=== PATIENT | male | born 1955 | race Caucasian/White ===

== ENCOUNTER 2021-01-20 11:06 | Inpatient (IN) | payer BC, OTHER ==
[~2021-01-20] VITALS: Ht 185.4 cm; Wt 115.8 kg
[2021-01-20] MEDS ORDERED: SODIUM CHLORIDE FLUSH 10ML SYR IVF ONE (11:30)
[2021-01-20] MEDS ORDERED: SODIUM CHLORIDE 0.9% 1,000ML IVBOLUS ONE (11:30)
--- NOTE | 2021-01-20 12:13 | NUR ---
RT foot swollen, reddened, two blackened area to anterior foot, blackened area to bottom of great toe, open ulcers to anterior foot proximal to great toe and ball of foot at great toe, peeling skin wrapping around distal foot, very strong odor noted. Pt states sx started w/ a blister one week ago. Had an mobile application architect; hasn't seen this doctor in a while. Hx: DM. Takes Metformin and "a shot". Reports being compliant w/ medications; "I've been controlling it very well."
[2021-01-20] MEDS ORDERED: Metformin PO (12:24)
[2021-01-20] MEDS ORDERED: insulin pen SQ (12:24)
[2021-01-20 12:26] LABS: MEAN CORPUSCULAR HEMOGLOBIN 29.4 pg (27.5-34.5); MEAN CORPUSCULAR HGB CONC 33.1 g/dL (33.2-36.2); MEAN PLATELET VOLUME 7.1 fL (7.4-10.4); PLATELET COUNT 487 x10^3/uL (130-400); RED BLOOD COUNT 3.39 x10^6/uL (4.38-5.82); RED CELL DISTRIBUTION WIDTH 14.3 % (9.4-14.8)
[2021-01-20 12:30] LABS: HCT (SEDRATE) 30.4 % (39.2-51.8)
[2021-01-20 12:31] LABS: ALANINE AMINOTRANSFERASE 61 U/L (12-78); ALBUMIN 1.8 g/dL (3.4-5.0); ANION GAP 10 mmol/L (5-15); CALCIUM 12.1 mg/dL (8.5-10.1); CHLORIDE 101 mmol/L (98-107); CREATININE 1.77 mg/dL (0.7-1.3)
[2021-01-20 12:41] LABS: ALKALINE PHOSPHATASE 174 U/L (45-117); BILIRUBIN,TOTAL 0.3 mg/dL (0.2-1.0); TOTAL PROTEIN 6.8 g/dL (6.4-8.2)
[2021-01-20 12:42] LABS: C-REACTIVE PROTEIN, QUANT > 19.00 mg/dL (0.02-0.49)
--- NOTE | 2021-01-20 12:48 | NUR ---
Gauze dressing applied to both RT foot ulcers. Blankets provided, side rail up x1, call light w/in reach. Pt requesting pain medication; ERP will be notified.
[2021-01-20 13:06] LABS: BAND#(MANUAL) 2.13 x10^3/uL; BANDS%(MANUAL) 11 % (0-7); LYMPH#(MANUAL) 0.78 x10^3/uL (1-3.4); LYMPHS% (MANUAL) 4 % (22-44); MONOS#(MANUAL) 0.78 x10^3/uL (0.3-2.7); MONOS% (MANUAL) 4 % (2-9); SEG#(MANUAL) 15.71 x10^3/uL (1.8-6.8); SEGS% (MANUAL) 81 % (42-75)
[2021-01-20 13:07] LABS: <PLATELET ESTIMATE> INCREASED; <PLT MORPHOLOGY> NORMAL PLT MORPH; <RBC MORPHOLOGY> NORMAL
[2021-01-20 13:09] LABS: PMNS WITH VACUOLES 1+; TOXIC GRAN 1+
[2021-01-20] MEDS ORDERED: PIPERACILLIN/TAZO 4.5 GM in SODIUM CHLORIDE 0.9% 100 ML IVPB ONE (13:30)
[2021-01-20] MEDS ORDERED: VANCOMYCIN PER PHARMACY MC ONE (13:30)
[2021-01-20] MEDS ORDERED: VANCOMYCIN 2,500 MG in SODIUM CHLORIDE 0.9% 500 ML IV ONE (13:30)
[2021-01-20] MEDS ORDERED: MORPHINE SULFATE 4 MG/ML, 1ML ONE (14:24)
[2021-01-20] MEDS ORDERED: ONDANSETRON 2MG/ML, 2ML ONE (14:24)
[2021-01-20] MEDS ORDERED: MORPHINE SULFATE 4 MG/ML, 1ML IVPush PRN (14:30)
[2021-01-20] MEDS ORDERED: ONDANSETRON 2MG/ML, 2ML IVPush ONE (14:30)
[2021-01-20] MEDS ORDERED: SODIUM CHLORIDE FLUSH 10ML SYR IVF PRN (14:30)
--- NOTE | 2021-01-20 14:30 | NUR ---
Break RN note: Pt medicated for 8/10 pain in R foot. POC discussed, Pt assisted to reposition himself in bed, provided urinal per request.
--- NOTE | 2021-01-20 14:57 | NUR ---
Break RN note: Pt resting in bed with eyes closed, resp even and unlabored, NADN. Pt awakens easily to this RN entering room. Pt reports pain improved after medications given, denies other needs.
[2021-01-20] MEDS ORDERED: VANCOMYCIN PER PHARMACY MC PRN (16:00)
--- NOTE | 2021-01-20 16:11 | NUR ---
Report called to Dina ORTIZ on medical. Floor ready for pt transport.
--- NOTE | 2021-01-20 16:13 | NUR ---
Level of care changed to medical with telemetry.
[2021-01-20] MEDS ORDERED: morphine SULFATE 10 MG/ML, 1ML IVPush PRN (16:30)
[2021-01-20] MEDS ORDERED: LACTATED RINGERS 1,000 ML IV SCH (16:30)
[2021-01-20] MEDS ORDERED: ONDANSETRON ODT 4 MG PO PRN (16:30)
[2021-01-20] MEDS ORDERED: ONDANSETRON 2MG/ML, 2ML IVPush PRN ×2 (16:30→18:00)
--- NOTE | 2021-01-20 16:52 | NUR ---
REPORT TO RADHA ORTIZ IN OR, PT TRANSPORTED TO OR VIA OR TECH.
[2021-01-20] MEDS ORDERED: INSULIN LISPRO 100 UNITS/ML, PEN SQ-INSULIN SCH ×2 (17:00→21:30)
[2021-01-20 17:07] LABS: INTERNATIONAL NORMALIZED RATIO 1.19 (0.93-1.1); PROTHROMBIN TIME 12.6 Seconds (9.6-11.5)
[2021-01-20] MEDS ORDERED: OXYcodone 5 MG/5 ML ORAL.SOL UDC PO PRN (18:00)
[2021-01-20] MEDS ORDERED: HYDROmorphone 1 MG/ML, 1ML INJ IVPush PRN (18:00)
[2021-01-20] MEDS ORDERED: hydrALAzine 20 MG/ML, 1ML IV PRN (18:00)
[2021-01-20] MEDS ORDERED: PROMETHAZINE 25 MG/ML, 1ML IVPush PRN (18:00)
[2021-01-20] MEDS ORDERED: METHOCARBAMOL 1,000 MG in DEXTROSE 5% 100 ML IV PRN (18:00)
[2021-01-20] MEDS ORDERED: LABETALOL 5MG/ML, 20ML IV PRN (18:00)
[2021-01-20] MEDS ORDERED: LORazepam 2 MG/ML, 1ML IVPush PRN (18:00)
[2021-01-20] MEDS ORDERED: ACETAMINOPHEN 325 MG TABLET PO PRN (18:00)
[2021-01-20] MEDS ORDERED: EPHEDRINE 50 MG/ML, 1ML IVPush PRN (18:00)
[2021-01-20] MEDS ORDERED: FENTANYL PF 100 MCG/2ML ONE (19:01)
[2021-01-20] MEDS ORDERED: OXYcodone 5 MG/5 ML ORAL.SOL UDC ONE (19:02)
[2021-01-20] MEDS ORDERED: ACETAMINOPHEN 650 MG/20.3 ML UDC ONE (19:03)
[2021-01-20] MEDS: FENTANYL PF 100 MCG/2ML IV PRN ×2 (19:08→19:40)
[2021-01-20 21:00] VITALS: BP 155/56
[2021-01-20] MEDS ORDERED: PHARMACOKINETIC MONITORING MC PRN (21:00)
[2021-01-20] MEDS: PIPERACILLIN/TAZO 3.375 GM in DEXTROSE 5% 50 ML IVPB SCH (21:58)
[2021-01-20 22:05] VITALS: BP 114/61
[2021-01-20 22:43] VITALS: BP 115/63
[2021-01-20 22:44] VITALS: BP 155/56
[2021-01-20 23:08] VITALS: BP 127/65
[2021-01-21 00:31] VITALS: BP 135/71
[2021-01-21] MEDS ORDERED: DIPHENHYDRAMINE 25 MG CAPSULE PO PRN (01:00)
[2021-01-21] MEDS ORDERED: ACETAMINOPHEN 325 MG TABLET PO PRN (01:00)
[2021-01-21] MEDS ORDERED: HYDROcodone/APAP 7.5-325MG/15ML UDC PO PRN (01:00)
[2021-01-21] MEDS ORDERED: ONDANSETRON 2MG/ML, 2ML IV PRN (01:00)
[2021-01-21] MEDS: KETOROLAC 30 MG/1 ML IV SCH ×3 (01:06→17:21)
[2021-01-21] MEDS: LACTATED RINGERS 1,000 ML IV SCH ×3 (03:36→23:46)
[2021-01-21 04:55] LABS: MEAN CORPUSCULAR HEMOGLOBIN 30.1 pg (27.5-34.5); MEAN CORPUSCULAR HGB CONC 33.2 g/dL (33.2-36.2); PLATELET COUNT 434 x10^3/uL (130-400); RED BLOOD COUNT 2.97 x10^6/uL (4.38-5.82); RED CELL DISTRIBUTION WIDTH 14.5 % (9.4-14.8)
[2021-01-21] MEDS: PIPERACILLIN/TAZO 3.375 GM in DEXTROSE 5% 50 ML IVPB SCH ×4 (05:06→20:50)
[2021-01-21 05:10] LABS: ALANINE AMINOTRANSFERASE 41 U/L (12-78); ALBUMIN 1.5 g/dL (3.4-5.0); ANION GAP 5 mmol/L (5-15); CALCIUM 10.5 mg/dL (8.5-10.1); CHLORIDE 106 mmol/L (98-107); CREATININE 1.39 mg/dL (0.7-1.3)
[2021-01-21 05:12] LABS: ALKALINE PHOSPHATASE 139 U/L (45-117); BILIRUBIN,TOTAL 0.3 mg/dL (0.2-1.0); TOTAL PROTEIN 6.1 g/dL (6.4-8.2)
[2021-01-21 05:59] LABS: BAND#(MANUAL) 0.53 x10^3/uL; BANDS%(MANUAL) 3 % (0-7); LYMPH#(MANUAL) 1.41 x10^3/uL (1-3.4); LYMPHS% (MANUAL) 8 % (22-44); MONOS#(MANUAL) 1.23 x10^3/uL (0.3-2.7); MONOS% (MANUAL) 7 % (2-9); SEG#(MANUAL) 14.43 x10^3/uL (1.8-6.8); SEGS% (MANUAL) 82 % (42-75)
[2021-01-21 06:00] LABS: <PLATELET ESTIMATE> INCREASED; <PLT MORPHOLOGY> NORMAL PLT MORPH; <RBC MORPHOLOGY> NORMAL; PMNS WITH VACUOLES 1+
[2021-01-21 07:12] VITALS: BP 153/75
[2021-01-21] MEDS: SODIUM CHLORIDE FLUSH 10ML SYR IVF SCH ×2 (08:05→20:00)
[2021-01-21] MEDS: DOCUSATE 100 MG CAPSULE PO SCH ×2 (08:05→19:58)
[2021-01-21] MEDS ORDERED: VANCOMYCIN 2,000 MG in SODIUM CHLORIDE 0.9% 500 ML IV SCH ×2 (09:00→14:00)
[2021-01-21] MEDS: INSULIN LISPRO 100 UNITS/ML, PEN SQ-INSULIN SCH ×4 (09:15→20:00)
[2021-01-21] MEDS: ENOXAPARIN 40 MG/0.4 ML SQ SCH (09:15)
[2021-01-21] MEDS: OXYcodone/APAP 5/325MG TABLET PO PRN ×3 (13:16→20:50)
[2021-01-21] MEDS ORDERED: INSULIN GLARGINE 100 UNITS/ML, PEN SQ-INSULIN ONE (14:16)
[2021-01-21 15:23] VITALS: BP 156/83
[2021-01-21 19:12] VITALS: BP 168/84
[2021-01-21] MEDS: INSULIN GLARGINE 100 UNITS/ML, PEN SQ-INSULIN SCH (19:59)
[2021-01-21] MEDS: DAPTOMYCIN 600 MG in SODIUM CHLORIDE 0.9% 100 ML IV SCH (19:59)
[2021-01-21] MEDS ORDERED: OXYMETAZOLINE NASAL SPRAY 0.05%,30ML ONE (23:05)
[2021-01-21 23:46] VITALS: BP 151/72
[2021-01-22 00:19] VITALS: BP 151/72
[2021-01-22] MEDS: OXYcodone/APAP 5/325MG TABLET PO PRN ×3 (02:45→18:59)
[2021-01-22 04:48] LABS: MEAN CORPUSCULAR HEMOGLOBIN 30.2 pg (27.5-34.5); MEAN CORPUSCULAR HGB CONC 33.5 g/dL (33.2-36.2); MEAN PLATELET VOLUME 6.8 fL (7.4-10.4); PLATELET COUNT 425 x10^3/uL (130-400); RED CELL DISTRIBUTION WIDTH 14.6 % (9.4-14.8)
[2021-01-22] MEDS: PIPERACILLIN/TAZO 3.375 GM in DEXTROSE 5% 50 ML IVPB SCH ×3 (05:00→20:55)
[2021-01-22 05:02] LABS: CHLORIDE 106 mmol/L (98-107)
[2021-01-22] MEDS: LACTATED RINGERS 1,000 ML IV SCH ×2 (05:02→16:19)
[2021-01-22 05:10] LABS: ALANINE AMINOTRANSFERASE 38 U/L (12-78); ALBUMIN 1.4 g/dL (3.4-5.0); ALKALINE PHOSPHATASE 144 U/L (45-117); ANION GAP 6 mmol/L (5-15); BILIRUBIN,TOTAL 0.4 mg/dL (0.2-1.0); CALCIUM 9.7 mg/dL (8.5-10.1); CREATININE 1.08 mg/dL (0.7-1.3); TOTAL PROTEIN 6.2 g/dL (6.4-8.2)
[2021-01-22 06:07] LABS: BANDS%(MANUAL) 5 % (0-7); LYMPHS% (MANUAL) 10 % (22-44); MONOS#(MANUAL) 1.08 x10^3/uL (0.3-2.7); MONOS% (MANUAL) 6 % (2-9); SEG#(MANUAL) 14.22 x10^3/uL (1.8-6.8); SEGS% (MANUAL) 79 % (42-75)
[2021-01-22 06:08] LABS: <PLATELET ESTIMATE> INCREASED; <PLT MORPHOLOGY> NORMAL PLT MORPH; <RBC MORPHOLOGY> NORMAL; TOXIC GRAN 1+
[2021-01-22] MEDS: INSULIN LISPRO 100 UNITS/ML, PEN SQ-INSULIN SCH ×4 (07:00→20:32)
[2021-01-22 08:18] VITALS: BP 159/74
[2021-01-22] MEDS: ENOXAPARIN 40 MG/0.4 ML SQ SCH (08:29)
[2021-01-22] MEDS: DOCUSATE 100 MG CAPSULE PO SCH ×2 (08:45→20:31)
[2021-01-22] MEDS: SODIUM CHLORIDE FLUSH 10ML SYR IVF SCH ×2 (08:45→20:06)
[2021-01-22] MEDS: INSULIN GLARGINE 100 UNITS/ML, PEN SQ-INSULIN SCH (08:46)
[2021-01-22] MEDS ORDERED: POLYETHYLENE GLYCOL 17 GM PACKET PO PRN (11:00)
[2021-01-22] MEDS ORDERED: FENTANYL PF 100 MCG/2ML IV PRN (12:00)
[2021-01-22] MEDS ORDERED: MIDAZOLAM 1 MG/ML, 2ML IV PRN (12:00)
[2021-01-22] MEDS ORDERED: HYDROmorphone 1 MG/ML, 1ML INJ IVPush PRN (12:00)
[2021-01-22] MEDS ORDERED: PROMETHAZINE 25 MG/ML, 1ML IVPush PRN (12:00)
[2021-01-22] MEDS ORDERED: ACETAMINOPHEN 325 MG TABLET PO PRN (12:00)
[2021-01-22] MEDS ORDERED: OXYcodone 5 MG/5 ML ORAL.SOL UDC PO PRN (12:00)
[2021-01-22] MEDS ORDERED: ALBUTEROL SULFATE 2.5 MG/3 ML NPPB PRN (12:00)
[2021-01-22] MEDS ORDERED: MEPERIDINE/PF 25MG/0.5ML IVPush PRN (12:00)
[2021-01-22] MEDS ORDERED: LABETALOL 5MG/ML, 20ML IV PRN (12:00)
[2021-01-22] MEDS ORDERED: MIDAZOLAM 1 MG/ML, 2ML ONE (12:02)
[2021-01-22] MEDS ORDERED: FENTANYL PF 100 MCG/2ML ONE (12:02)
[2021-01-22] MEDS ORDERED: PROPOFOL 10 MG/ML, 20ML ONE (12:26)
[2021-01-22] MEDS ORDERED: ONDANSETRON 2MG/ML, 2ML ONE (12:26)
[2021-01-22] MEDS ORDERED: OXYcodone 5 MG/5 ML ORAL.SOL UDC ONE (13:48)
[2021-01-22 16:14] VITALS: BP 146/58
[2021-01-22] MEDS: SENNA/DOCUSATE TABLET PO PRN (16:18)
[2021-01-22] MEDS: DAPTOMYCIN 600 MG in SODIUM CHLORIDE 0.9% 100 ML IV SCH (18:59)
[2021-01-22 19:02] VITALS: BP 161/93
[2021-01-22] MEDS: HYDROmorphone 2 MG/ML, 1ML IVPush PRN (20:31)
[2021-01-23 01:30] VITALS: BP 153/87
[2021-01-23] MEDS: LACTATED RINGERS 1,000 ML IV SCH ×3 (05:00→23:48)
[2021-01-23] MEDS: PIPERACILLIN/TAZO 3.375 GM in DEXTROSE 5% 50 ML IVPB SCH ×3 (05:05→20:44)
[2021-01-23] MEDS: OXYcodone/APAP 5/325MG TABLET PO PRN ×4 (05:19→23:53)
[2021-01-23 06:00] LABS: BASOPHILS % (AUTO) 0 % (0-1); EOSINOPHILS % (AUTO) 2 % (1-7); LYMPHOCYTES % (AUTO) 13 % (22-44); MEAN CORPUSCULAR HEMOGLOBIN 29.6 pg (27.5-34.5); MEAN CORPUSCULAR HGB CONC 32.6 g/dL (33.2-36.2); MEAN PLATELET VOLUME 6.7 fL (7.4-10.4); MONOCYTES % (AUTO) 7 % (2-9); NEUTROPHILS % (AUTO) 78 % (42-75); PLATELET COUNT 427 x10^3/uL (130-400); RED BLOOD COUNT 2.91 x10^6/uL (4.38-5.82); RED CELL DISTRIBUTION WIDTH 14.7 % (9.4-14.8)
[2021-01-23 06:09] LABS: CHLORIDE 107 mmol/L (98-107)
[2021-01-23 06:15] LABS: ALANINE AMINOTRANSFERASE 42 U/L (12-78); ALBUMIN 1.4 g/dL (3.4-5.0); ALKALINE PHOSPHATASE 146 U/L (45-117); ANION GAP 6 mmol/L (5-15); BILIRUBIN,TOTAL 0.4 mg/dL (0.2-1.0); CALCIUM 9.2 mg/dL (8.5-10.1); CREATININE 0.95 mg/dL (0.7-1.3); TOTAL PROTEIN 6.6 g/dL (6.4-8.2)
[2021-01-23] MEDS: INSULIN LISPRO 100 UNITS/ML, PEN SQ-INSULIN SCH ×4 (07:00→20:45)
[2021-01-23 07:48] VITALS: BP 151/83
[2021-01-23 08:13] VITALS: BP 159/80
[2021-01-23] MEDS: ENOXAPARIN 40 MG/0.4 ML SQ SCH (09:57)
[2021-01-23] MEDS: DOCUSATE 100 MG CAPSULE PO SCH ×2 (09:58→20:44)
[2021-01-23] MEDS: SODIUM CHLORIDE FLUSH 10ML SYR IVF SCH ×2 (09:58→20:44)
[2021-01-23 13:10] VITALS: BP 173/81
[2021-01-23] MEDS: INSULIN GLARGINE 100 UNITS/ML, PEN SQ-INSULIN SCH ×2 (14:35→20:45)
[2021-01-23] MEDS: DAPTOMYCIN 600 MG in SODIUM CHLORIDE 0.9% 100 ML IV SCH (19:41)
[2021-01-23 20:30] VITALS: BP 159/82
[2021-01-23] MEDS: HYDROmorphone 2 MG/ML, 1ML IVPush PRN (20:56)
[2021-01-24 02:29] VITALS: BP 162/86
[2021-01-24] MEDS: SENNA/DOCUSATE TABLET PO PRN (02:35)
[2021-01-24] MEDS: HYDROmorphone 2 MG/ML, 1ML IVPush PRN ×2 (02:36→19:55)
[2021-01-24] MEDS: PIPERACILLIN/TAZO 3.375 GM in DEXTROSE 5% 50 ML IVPB SCH ×3 (05:18→21:00)
[2021-01-24] MEDS: OXYcodone/APAP 5/325MG TABLET PO PRN ×3 (05:23→22:04)
[2021-01-24] MEDS: INSULIN LISPRO 100 UNITS/ML, PEN SQ-INSULIN SCH ×4 (07:00→19:48)
[2021-01-24 07:09] LABS: HCT (SEDRATE) 26.3 % (39.2-51.8)
[2021-01-24 07:13] LABS: BASOPHILS % (AUTO) 0 % (0-1); EOSINOPHILS % (AUTO) 2 % (1-7); LYMPHOCYTES % (AUTO) 13 % (22-44); MEAN CORPUSCULAR HEMOGLOBIN 29.4 pg (27.5-34.5); MEAN CORPUSCULAR HGB CONC 32.6 g/dL (33.2-36.2); MEAN PLATELET VOLUME 6.7 fL (7.4-10.4); MONOCYTES % (AUTO) 6 % (2-9); NEUTROPHILS % (AUTO) 79 % (42-75); PLATELET COUNT 450 x10^3/uL (130-400); RED BLOOD COUNT 2.89 x10^6/uL (4.38-5.82); RED CELL DISTRIBUTION WIDTH 14.5 % (9.4-14.8)
[2021-01-24 07:22] VITALS: BP 153/84
[2021-01-24 07:30] LABS: ALANINE AMINOTRANSFERASE 48 U/L (12-78); ALBUMIN 1.4 g/dL (3.4-5.0); ANION GAP 7 mmol/L (5-15); CALCIUM 8.9 mg/dL (8.5-10.1); CHLORIDE 105 mmol/L (98-107)
[2021-01-24 07:37] LABS: ALKALINE PHOSPHATASE 154 U/L (45-117); BILIRUBIN,TOTAL 0.4 mg/dL (0.2-1.0); CREATINE KINASE, TOTAL 136 U/L (39-308); CREATININE 0.92 mg/dL (0.7-1.3); TOTAL PROTEIN 6.6 g/dL (6.4-8.2)
[2021-01-24] MEDS: ENOXAPARIN 40 MG/0.4 ML SQ SCH (08:45)
[2021-01-24] MEDS: DOCUSATE 100 MG CAPSULE PO SCH ×2 (09:00→21:00)
[2021-01-24] MEDS: INSULIN GLARGINE 100 UNITS/ML, PEN SQ-INSULIN SCH ×2 (09:10→19:48)
[2021-01-24] MEDS: LACTATED RINGERS 1,000 ML IV SCH ×3 (09:13→21:20)
[2021-01-24] MEDS: SODIUM CHLORIDE FLUSH 10ML SYR IVF SCH ×2 (09:13→21:00)
[2021-01-24] MEDS ORDERED: CHLORHEXIDINE 15 ML UDC PO ONE (10:00)
[2021-01-24] MEDS ORDERED: FENTANYL PF 100 MCG/2ML ONE (10:29)
[2021-01-24] MEDS ORDERED: ROCURONIUM 10MG/ML,5ML ONE (10:31)
[2021-01-24] MEDS ORDERED: PROPOFOL 10 MG/ML, 20ML ONE (10:31)
[2021-01-24] MEDS ORDERED: SUCCINYLCHOLINE 20 MG/ML, 10ML ONE (10:31)
[2021-01-24] MEDS ORDERED: ALBUTEROL HFA 90 MCG/SPRAY ONE (10:58)
[2021-01-24] MEDS ORDERED: PROMETHAZINE 12.5 MG SUPP PR PRN (11:30)
[2021-01-24] MEDS ORDERED: FENTANYL PF 100 MCG/2ML IV PRN (11:30)
[2021-01-24] MEDS ORDERED: EPHEDRINE 50 MG/ML, 1ML IVPush PRN (11:30)
[2021-01-24] MEDS ORDERED: MIDAZOLAM 1 MG/ML, 2ML IV PRN (11:30)
[2021-01-24] MEDS ORDERED: DIPHENHYDRAMINE 50 MG/ML, 1ML IVPush PRN ×2 (11:30)
[2021-01-24] MEDS ORDERED: ALBUTEROL SULFATE 2.5 MG/3 ML NPPB PRN (11:30)
[2021-01-24] MEDS ORDERED: OXYcodone 5 MG/5 ML ORAL.SOL UDC PO PRN (11:30)
[2021-01-24] MEDS ORDERED: LABETALOL 5MG/ML, 20ML IV PRN (11:30)
[2021-01-24] MEDS ORDERED: LORazepam 2 MG/ML, 1ML IVPush PRN (11:30)
[2021-01-24] MEDS ORDERED: MEPERIDINE/PF 25MG/0.5ML IVPush PRN (11:30)
[2021-01-24] MEDS ORDERED: DIAZEPAM 5 MG/ML, 2ML IVPush PRN (11:30)
[2021-01-24] MEDS ORDERED: hydrALAzine 20 MG/ML, 1ML IV PRN (11:30)
[2021-01-24] MEDS ORDERED: ONDANSETRON 2MG/ML, 2ML IVPush PRN (11:30)
[2021-01-24] MEDS ORDERED: PROMETHAZINE 25 MG/ML, 1ML IVPush PRN (11:30)
[2021-01-24] MEDS ORDERED: OXYcodone 5 MG/5 ML ORAL.SOL UDC ONE (11:46)
[2021-01-24] MEDS ORDERED: HYDROmorphone 2 MG/ML, 1ML ONE (11:48)
[2021-01-24] MEDS: HYDROmorphone 1 MG/ML, 1ML INJ IVPush PRN ×2 (11:50→12:00)
[2021-01-24 13:08] VITALS: BP 122/75
[2021-01-24 19:39] VITALS: BP 160/79
[2021-01-24] MEDS: DAPTOMYCIN 600 MG in SODIUM CHLORIDE 0.9% 100 ML IV SCH (19:45)
[2021-01-25 01:37] VITALS: BP 138/73
[2021-01-25] MEDS: LACTATED RINGERS 1,000 ML IV SCH ×3 (04:00→19:30)
[2021-01-25] MEDS: PIPERACILLIN/TAZO 3.375 GM in DEXTROSE 5% 50 ML IVPB SCH ×3 (05:15→21:00)
[2021-01-25] MEDS: OXYcodone/APAP 5/325MG TABLET PO PRN ×4 (05:54→22:12)
[2021-01-25 06:38] LABS: BASOPHILS % (AUTO) 0 % (0-1); EOSINOPHILS % (AUTO) 3 % (1-7); LYMPHOCYTES % (AUTO) 14 % (22-44); MEAN CORPUSCULAR HEMOGLOBIN 29.3 pg (27.5-34.5); MEAN CORPUSCULAR HGB CONC 32.3 g/dL (33.2-36.2); MEAN PLATELET VOLUME 6.6 fL (7.4-10.4); MONOCYTES % (AUTO) 6 % (2-9); NEUTROPHILS % (AUTO) 77 % (42-75); PLATELET COUNT 411 x10^3/uL (130-400); RED BLOOD COUNT 2.86 x10^6/uL (4.38-5.82); RED CELL DISTRIBUTION WIDTH 14.7 % (9.4-14.8)
[2021-01-25 06:39] VITALS: BP 166/72
[2021-01-25 06:55] LABS: ALBUMIN 1.5 g/dL (3.4-5.0); ANION GAP 6 mmol/L (5-15); CALCIUM 8.5 mg/dL (8.5-10.1); CHLORIDE 106 mmol/L (98-107); CREATININE 0.99 mg/dL (0.7-1.3)
[2021-01-25] MEDS: INSULIN LISPRO 100 UNITS/ML, PEN SQ-INSULIN SCH ×4 (07:00→21:00)
[2021-01-25] MEDS: SODIUM CHLORIDE FLUSH 10ML SYR IVF SCH ×2 (08:23→21:00)
[2021-01-25] MEDS: DOCUSATE 100 MG CAPSULE PO SCH ×2 (08:23→21:00)
[2021-01-25] MEDS: INSULIN GLARGINE 100 UNITS/ML, PEN SQ-INSULIN SCH ×2 (08:23→21:00)
[2021-01-25] MEDS: ENOXAPARIN 40 MG/0.4 ML SQ SCH (10:47)
[2021-01-25 14:00] VITALS: BP 166/75
[2021-01-25 18:51] VITALS: BP 167/78
[2021-01-25] MEDS: DAPTOMYCIN 600 MG in SODIUM CHLORIDE 0.9% 100 ML IV SCH (19:32)
[2021-01-26 00:46] VITALS: BP 160/80
[2021-01-26] MEDS: LACTATED RINGERS 1,000 ML IV SCH ×2 (02:10→08:15)
[2021-01-26] MEDS: OXYcodone/APAP 5/325MG TABLET PO PRN ×5 (04:56→22:57)
[2021-01-26] MEDS: PIPERACILLIN/TAZO 3.375 GM in DEXTROSE 5% 50 ML IVPB SCH ×3 (05:00→21:00)
[2021-01-26 07:00] VITALS: BP 175/68
[2021-01-26 07:50] VITALS: BP 163/83
[2021-01-26] MEDS: INSULIN LISPRO 100 UNITS/ML, PEN SQ-INSULIN SCH ×4 (08:10→21:00)
[2021-01-26] MEDS: INSULIN GLARGINE 100 UNITS/ML, PEN SQ-INSULIN SCH ×2 (08:13→21:00)
[2021-01-26] MEDS: ENOXAPARIN 40 MG/0.4 ML SQ SCH (08:21)
[2021-01-26] MEDS: MULTIVITS,STRESS FORMULA 1 TABLET PO SCH (08:22)
[2021-01-26] MEDS: ZINC SULFATE 220 MG CAPSULE PO SCH (08:22)
[2021-01-26] MEDS: CHOLECALCIFEROL 5,000u TAB PO SCH (08:23)
[2021-01-26] MEDS: DOCUSATE 100 MG CAPSULE PO SCH ×2 (08:24→20:17)
[2021-01-26] MEDS: SODIUM CHLORIDE FLUSH 10ML SYR IVF SCH ×2 (08:24→21:00)
[2021-01-26] MEDS ORDERED: CYANOCOBALAMIN 1,000 MCG/ML, 1ML IM ONE (08:30)
[2021-01-26] MEDS ORDERED: FUROSEMIDE 20 MG/2 ML ONE (12:54)
[2021-01-26] MEDS ORDERED: FUROSEMIDE 20 MG/2 ML IV ONE ×2 (13:00→22:00)
[2021-01-26 14:06] VITALS: BP 170/86
[2021-01-26] MEDS: ALBUTEROL-IPRATROPIUM MDI INH INH PRN (15:15)
[2021-01-26] MEDS: ASCORBIC ACID 500 MG TABLET PO SCH (15:37)
[2021-01-26 16:12] VITALS: BP 168/70
[2021-01-26] MEDS ORDERED: ENALAPRILAT 1.25 MG/ML, 1ML IV PRN (16:30)
[2021-01-26 19:26] VITALS: BP 169/85
[2021-01-26] MEDS ORDERED: DILTIAZEM 5 MG/ML, 5ML IVPush ONE ×2 (21:30→22:00)
[2021-01-27] MEDS ORDERED: METOPROLOL 1 MG/ML, 5ML IVPush ONE (00:30)
[2021-01-27 00:40] VITALS: BP 160/74
[2021-01-27] MEDS: OXYcodone/APAP 5/325MG TABLET PO PRN (04:08)
[2021-01-27] MEDS: PIPERACILLIN/TAZO 3.375 GM in DEXTROSE 5% 50 ML IVPB SCH ×3 (05:18→21:28)
[2021-01-27] MEDS: ASCORBIC ACID 500 MG TABLET PO SCH ×2 (07:35→16:55)
[2021-01-27] MEDS: INSULIN LISPRO 100 UNITS/ML, PEN SQ-INSULIN SCH ×4 (07:48→21:30)
[2021-01-27 08:59] VITALS: BP 195/85
[2021-01-27] MEDS: MULTIVITS,STRESS FORMULA 1 TABLET PO SCH (09:36)
[2021-01-27] MEDS: ENOXAPARIN 40 MG/0.4 ML SQ SCH (09:37)
[2021-01-27] MEDS: ZINC SULFATE 220 MG CAPSULE PO SCH ×2 (09:37→09:58)
[2021-01-27] MEDS: CHOLECALCIFEROL 5,000u TAB PO SCH (09:37)
[2021-01-27 09:40] LABS: BASOPHILS % (AUTO) 0 % (0-1); EOSINOPHILS % (AUTO) 1 % (1-7); LYMPHOCYTES % (AUTO) 12 % (22-44); MEAN CORPUSCULAR HEMOGLOBIN 29.7 pg (27.5-34.5); MEAN CORPUSCULAR HGB CONC 33.2 g/dL (33.2-36.2); MEAN PLATELET VOLUME 6.8 fL (7.4-10.4); MONOCYTES % (AUTO) 7 % (2-9); NEUTROPHILS % (AUTO) 80 % (42-75); PLATELET COUNT 520 x10^3/uL (130-400); RED BLOOD COUNT 3.25 x10^6/uL (4.38-5.82); RED CELL DISTRIBUTION WIDTH 14.7 % (9.4-14.8)
[2021-01-27] MEDS: SODIUM CHLORIDE FLUSH 10ML SYR IVF SCH ×2 (09:43→21:31)
[2021-01-27] MEDS: DOCUSATE 100 MG CAPSULE PO SCH ×2 (09:46→21:00)
[2021-01-27] MEDS: INSULIN GLARGINE 100 UNITS/ML, PEN SQ-INSULIN SCH ×2 (09:46→21:30)
[2021-01-27 09:50] LABS: ALANINE AMINOTRANSFERASE 39 U/L (12-78); ALBUMIN 1.9 g/dL (3.4-5.0); CALCIUM 8.2 mg/dL (8.5-10.1); CREATININE 0.88 mg/dL (0.7-1.3)
[2021-01-27 09:52] LABS: ALKALINE PHOSPHATASE 118 U/L (45-117); BILIRUBIN,TOTAL 0.4 mg/dL (0.2-1.0); TOTAL PROTEIN 7.3 g/dL (6.4-8.2)
[2021-01-27 10:16] LABS: ANION GAP 5 mmol/L (5-15); CHLORIDE 107 mmol/L (98-107)
[2021-01-27] MEDS: ALBUTEROL-IPRATROPIUM MDI INH INH PRN ×2 (11:28→19:37)
[2021-01-27] MEDS: GUAIFENESIN 200 MG TABLET PO SCH ×3 (12:54→21:28)
[2021-01-27] MEDS ORDERED: FUROSEMIDE 40 MG/4 ML ONE (13:13)
[2021-01-27] MEDS: FUROSEMIDE 40 MG/4 ML IV SCH ×2 (13:17→16:55)
[2021-01-27] MEDS ORDERED: ENALAPRILAT 1.25 MG/ML, 1ML IV PRN (13:30)
[2021-01-27] MEDS ORDERED: FUROSEMIDE 40 MG/4 ML IV ONE (13:30)
[2021-01-27 14:39] VITALS: BP 172/83
[2021-01-27 19:27] VITALS: BP 192/82
[2021-01-27] MEDS ORDERED: MELATONIN 5 MG TABLET ONE (21:24)
[2021-01-27] MEDS: MELATONIN 5 MG TABLET PO PRN (21:29)
[2021-01-28 00:59] VITALS: BP 177/85
[2021-01-28 01:26] VITALS: BP 166/84
[2021-01-28] MEDS: OXYcodone/APAP 5/325MG TABLET PO PRN ×4 (01:48→20:51)
[2021-01-28] MEDS: ALBUTEROL-IPRATROPIUM MDI INH INH PRN (05:21)
[2021-01-28] MEDS: PIPERACILLIN/TAZO 3.375 GM in DEXTROSE 5% 50 ML IVPB SCH ×3 (05:21→20:21)
[2021-01-28] MEDS: GUAIFENESIN 200 MG TABLET PO SCH ×4 (05:23→20:21)
[2021-01-28 06:49] VITALS: BP 180/81
[2021-01-28] MEDS: INSULIN LISPRO 100 UNITS/ML, PEN SQ-INSULIN SCH ×4 (07:00→20:22)
[2021-01-28] MEDS: INSULIN GLARGINE 100 UNITS/ML, PEN SQ-INSULIN SCH ×2 (08:25→20:23)
[2021-01-28] MEDS: ASCORBIC ACID 500 MG TABLET PO SCH ×2 (08:25→16:10)
[2021-01-28] MEDS: ENOXAPARIN 40 MG/0.4 ML SQ SCH (08:25)
[2021-01-28] MEDS: SODIUM CHLORIDE FLUSH 10ML SYR IVF SCH ×2 (08:26→20:21)
[2021-01-28] MEDS: MULTIVITS,STRESS FORMULA 1 TABLET PO SCH (08:26)
[2021-01-28] MEDS: CHOLECALCIFEROL 5,000u TAB PO SCH (08:26)
[2021-01-28] MEDS: ZINC SULFATE 220 MG CAPSULE PO SCH (08:26)
[2021-01-28] MEDS: FUROSEMIDE 40 MG/4 ML IV SCH ×2 (08:27→14:25)
[2021-01-28] MEDS: DOCUSATE 100 MG CAPSULE PO SCH ×2 (08:27→20:21)
[2021-01-28 09:30] LABS: BASOPHILS % (AUTO) 1 % (0-1); EOSINOPHILS % (AUTO) 1 % (1-7); LYMPHOCYTES % (AUTO) 12 % (22-44); MEAN CORPUSCULAR HEMOGLOBIN 29.1 pg (27.5-34.5); MEAN CORPUSCULAR HGB CONC 32.4 g/dL (33.2-36.2); MONOCYTES % (AUTO) 5 % (2-9); NEUTROPHILS % (AUTO) 82 % (42-75); PLATELET COUNT 495 x10^3/uL (130-400); RED BLOOD COUNT 3.34 x10^6/uL (4.38-5.82); RED CELL DISTRIBUTION WIDTH 14.6 % (9.4-14.8)
[2021-01-28] MEDS: LISINOPRIL 10 MG TABLET PO SCH ×2 (11:13→20:21)
[2021-01-28 12:39] VITALS: BP 168/76
[2021-01-28] MEDS ORDERED: FUROSEMIDE 100 MG/10 ML IV ONE (14:00)
[2021-01-28 20:15] VITALS: BP 163/90
[2021-01-28] MEDS: MELATONIN 5 MG TABLET PO PRN (20:21)
[2021-01-29 01:05] VITALS: BP 156/87
[2021-01-29] MEDS ORDERED: FUROSEMIDE 40 MG/4 ML IV ONE (01:30)
[2021-01-29] MEDS: ALBUTEROL-IPRATROPIUM MDI INH INH PRN ×2 (01:38→20:43)
[2021-01-29] MEDS: PIPERACILLIN/TAZO 3.375 GM in DEXTROSE 5% 50 ML IVPB SCH ×3 (05:32→20:34)
[2021-01-29] MEDS: OXYcodone/APAP 5/325MG TABLET PO PRN ×4 (05:33→20:34)
[2021-01-29] MEDS: GUAIFENESIN 200 MG TABLET PO SCH ×4 (05:33→21:56)
[2021-01-29 05:36] LABS: BASOPHILS % (AUTO) 0 % (0-1); EOSINOPHILS % (AUTO) 2 % (1-7); LYMPHOCYTES % (AUTO) 13 % (22-44); MEAN CORPUSCULAR HEMOGLOBIN 29.2 pg (27.5-34.5); MEAN CORPUSCULAR HGB CONC 33.1 g/dL (33.2-36.2); MEAN PLATELET VOLUME 6.9 fL (7.4-10.4); MONOCYTES % (AUTO) 6 % (2-9); NEUTROPHILS % (AUTO) 79 % (42-75); PLATELET COUNT 485 x10^3/uL (130-400); RED BLOOD COUNT 3.08 x10^6/uL (4.38-5.82); RED CELL DISTRIBUTION WIDTH 14.7 % (9.4-14.8)
[2021-01-29 05:47] LABS: CALCIUM 8.2 mg/dL (8.5-10.1); CHLORIDE 101 mmol/L (98-107)
[2021-01-29 05:50] LABS: ALBUMIN 1.7 g/dL (3.4-5.0); ANION GAP 7 mmol/L (5-15); CREATININE 0.74 mg/dL (0.7-1.3)
[2021-01-29 08:15] VITALS: BP 158/77
[2021-01-29] MEDS: ZINC SULFATE 220 MG CAPSULE PO SCH (08:19)
[2021-01-29] MEDS: MULTIVITS,STRESS FORMULA 1 TABLET PO SCH (08:19)
[2021-01-29] MEDS: LISINOPRIL 10 MG TABLET PO SCH ×2 (08:19→20:35)
[2021-01-29] MEDS: ASCORBIC ACID 500 MG TABLET PO SCH ×2 (08:19→15:35)
[2021-01-29] MEDS: CHOLECALCIFEROL 5,000u TAB PO SCH (08:19)
[2021-01-29] MEDS: INSULIN LISPRO 100 UNITS/ML, PEN SQ-INSULIN SCH ×4 (08:20→20:36)
[2021-01-29] MEDS: FUROSEMIDE 40 MG/4 ML IV SCH ×2 (08:20→11:44)
[2021-01-29] MEDS: SODIUM CHLORIDE FLUSH 10ML SYR IVF SCH ×2 (08:21→20:34)
[2021-01-29] MEDS: INSULIN GLARGINE 100 UNITS/ML, PEN SQ-INSULIN SCH ×2 (08:21→20:36)
[2021-01-29] MEDS: DOCUSATE 100 MG CAPSULE PO SCH ×2 (08:21→20:35)
[2021-01-29] MEDS: ENOXAPARIN 40 MG/0.4 ML SQ SCH (08:22)
[2021-01-29] MEDS ORDERED: POTASSIUM PHOSPHATE 44 MEQ in SODIUM CHLORIDE 0.9% 500 ML IV ONE (08:30)
[2021-01-29 13:19] VITALS: BP 107/63
[2021-01-29] MEDS ORDERED: METOPROLOL SUCCINATE 25 MG TAB.ER.24H PO ONE (15:00)
[2021-01-29 19:51] VITALS: BP 163/83
[2021-01-29] MEDS: MELATONIN 5 MG TABLET PO PRN (20:35)
[2021-01-29] MEDS: GUAIFENESIN 100 MG/5 ML, 10ML UDC PO SCH (22:27)
[2021-01-30 00:47] VITALS: BP 160/81
[2021-01-30] MEDS ORDERED: FUROSEMIDE 40 MG/4 ML IV ONE (03:00)
[2021-01-30] MEDS ORDERED: POTASSIUM CHLORIDE 20 MEQ TAB.ER.PRT ONE (03:00)
[2021-01-30] MEDS ORDERED: POTASSIUM CHLORIDE 20 MEQ TAB.ER.PRT PO ONE (03:00)
[2021-01-30] MEDS: ALBUTEROL-IPRATROPIUM MDI INH INH PRN ×2 (03:24→11:55)
[2021-01-30] MEDS: PIPERACILLIN/TAZO 3.375 GM in DEXTROSE 5% 50 ML IVPB SCH ×3 (05:30→21:28)
[2021-01-30 05:41] LABS: ALBUMIN 1.8 g/dL (3.4-5.0); ANION GAP 6 mmol/L (5-15); CALCIUM 7.9 mg/dL (8.5-10.1); CHLORIDE 98 mmol/L (98-107); CREATININE 0.87 mg/dL (0.7-1.3)
[2021-01-30 05:42] LABS: BASOPHILS % (AUTO) 1 % (0-1); EOSINOPHILS % (AUTO) 2 % (1-7); LYMPHOCYTES % (AUTO) 10 % (22-44); MEAN CORPUSCULAR HGB CONC 32.8 g/dL (33.2-36.2); MONOCYTES % (AUTO) 5 % (2-9); NEUTROPHILS % (AUTO) 82 % (42-75); PLATELET COUNT 481 x10^3/uL (130-400); RED BLOOD COUNT 3.26 x10^6/uL (4.38-5.82); RED CELL DISTRIBUTION WIDTH 14.6 % (9.4-14.8)
[2021-01-30] MEDS ORDERED: GUAIFENESIN 100 MG/5 ML, 10ML UDC PO SCH (06:00)
[2021-01-30 06:19] VITALS: BP 161/82
[2021-01-30] MEDS: METOPROLOL SUCCINATE 25 MG TAB.ER.24H PO SCH (06:24)
[2021-01-30] MEDS: GUAIFENESIN 100 MG/5 ML, 10ML UDC PO SCH ×4 (06:25→21:28)
[2021-01-30] MEDS: INSULIN LISPRO 100 UNITS/ML, PEN SQ-INSULIN SCH ×4 (07:56→21:44)
[2021-01-30] MEDS: FUROSEMIDE 40 MG/4 ML IV SCH ×2 (07:57→11:42)
[2021-01-30] MEDS: DOCUSATE 100 MG CAPSULE PO SCH ×2 (08:00→21:00)
[2021-01-30] MEDS: MULTIVITS,STRESS FORMULA 1 TABLET PO SCH (08:00)
[2021-01-30] MEDS: ZINC SULFATE 220 MG CAPSULE PO SCH (08:00)
[2021-01-30] MEDS: LISINOPRIL 10 MG TABLET PO SCH ×2 (08:00→21:30)
[2021-01-30] MEDS: ASCORBIC ACID 500 MG TABLET PO SCH ×2 (08:00→17:12)
[2021-01-30] MEDS: CHOLECALCIFEROL 5,000u TAB PO SCH (08:00)
[2021-01-30] MEDS: ENOXAPARIN 40 MG/0.4 ML SQ SCH (08:01)
[2021-01-30] MEDS: INSULIN GLARGINE 100 UNITS/ML, PEN SQ-INSULIN SCH ×2 (08:04→21:45)
[2021-01-30] MEDS: SODIUM CHLORIDE FLUSH 10ML SYR IVF SCH ×2 (08:05→21:44)
[2021-01-30] MEDS: OXYcodone/APAP 5/325MG TABLET PO PRN ×4 (08:09→21:43)
[2021-01-30 09:18] VITALS: BP 173/93
[2021-01-30] MEDS: PLEASE ENTER ALLERGIES MC SCH ×2 (11:54→20:00)
[2021-01-30 13:28] VITALS: BP 132/65
[2021-01-30 20:08] VITALS: BP 153/75
[2021-01-30] MEDS: MELATONIN 5 MG TABLET PO PRN (21:28)
[2021-01-30 21:30] VITALS: BP 169/83
[2021-01-31] MEDS: PLEASE ENTER ALLERGIES MC SCH (03:42)
[2021-01-31 03:45] VITALS: BP 160/80
[2021-01-31] MEDS: OXYcodone/APAP 5/325MG TABLET PO PRN (04:39)
[2021-01-31 05:20] VITALS: BP 164/83
[2021-01-31] MEDS: GUAIFENESIN 100 MG/5 ML, 10ML UDC PO SCH ×5 (05:33→20:14)
[2021-01-31] MEDS: PIPERACILLIN/TAZO 3.375 GM in DEXTROSE 5% 50 ML IVPB SCH ×3 (05:33→22:39)
[2021-01-31] MEDS: METOPROLOL SUCCINATE 25 MG TAB.ER.24H PO SCH (05:33)
[2021-01-31 07:07] LABS: BASOPHILS % (AUTO) 1 % (0-1); EOSINOPHILS % (AUTO) 4 % (1-7); LYMPHOCYTES % (AUTO) 21 % (22-44); MEAN CORPUSCULAR HEMOGLOBIN 29.2 pg (27.5-34.5); MEAN CORPUSCULAR HGB CONC 33.5 g/dL (33.2-36.2); MEAN PLATELET VOLUME 6.9 fL (7.4-10.4); MONOCYTES % (AUTO) 8 % (2-9); NEUTROPHILS % (AUTO) 67 % (42-75); PLATELET COUNT 438 x10^3/uL (130-400); RED BLOOD COUNT 3.36 x10^6/uL (4.38-5.82); RED CELL DISTRIBUTION WIDTH 14.5 % (9.4-14.8)
[2021-01-31 07:10] LABS: ALBUMIN 1.9 g/dL (3.4-5.0); ANION GAP 6 mmol/L (5-15); CALCIUM 8.2 mg/dL (8.5-10.1); CHLORIDE 97 mmol/L (98-107); HCT (SEDRATE) 29.2 % (39.2-51.8)
[2021-01-31 07:19] VITALS: BP 136/73
[2021-01-31 07:19] LABS: ALANINE AMINOTRANSFERASE 27 U/L (12-78); ALKALINE PHOSPHATASE 79 U/L (45-117); BILIRUBIN,TOTAL 0.5 mg/dL (0.2-1.0); CREATININE 0.79 mg/dL (0.7-1.3); TOTAL PROTEIN 6.8 g/dL (6.4-8.2)
[2021-01-31] MEDS: FUROSEMIDE 40 MG/4 ML IV SCH (08:45)
[2021-01-31] MEDS: INSULIN GLARGINE 100 UNITS/ML, PEN SQ-INSULIN SCH ×2 (08:51→20:12)
[2021-01-31] MEDS: INSULIN LISPRO 100 UNITS/ML, PEN SQ-INSULIN SCH ×4 (08:52→20:12)
[2021-01-31] MEDS: ENOXAPARIN 40 MG/0.4 ML SQ SCH (08:53)
[2021-01-31] MEDS: MULTIVITS,STRESS FORMULA 1 TABLET PO SCH (08:54)
[2021-01-31] MEDS: ASCORBIC ACID 500 MG TABLET PO SCH ×2 (08:54→17:35)
[2021-01-31] MEDS: CHOLECALCIFEROL 5,000u TAB PO SCH (08:54)
[2021-01-31] MEDS: SODIUM CHLORIDE FLUSH 10ML SYR IVF SCH ×2 (08:57→20:11)
[2021-01-31] MEDS: DOCUSATE 100 MG CAPSULE PO SCH ×2 (08:57→20:12)
[2021-01-31] MEDS: ZINC SULFATE 220 MG CAPSULE PO SCH (09:00)
[2021-01-31] MEDS: LISINOPRIL 10 MG TABLET PO SCH ×2 (09:00→20:11)
[2021-01-31 14:25] VITALS: BP 143/71
[2021-01-31 19:33] VITALS: BP 150/74
[2021-02-01 00:11] VITALS: BP 155/73
[2021-02-01] MEDS: METOPROLOL SUCCINATE 25 MG TAB.ER.24H PO SCH (06:08)
[2021-02-01] MEDS: GUAIFENESIN 100 MG/5 ML, 10ML UDC PO SCH ×4 (06:08→20:04)
[2021-02-01] MEDS: PIPERACILLIN/TAZO 3.375 GM in DEXTROSE 5% 50 ML IVPB SCH ×3 (06:09→22:49)
[2021-02-01 07:44] VITALS: BP 150/80
[2021-02-01] MEDS: ASCORBIC ACID 500 MG TABLET PO SCH ×2 (08:14→17:07)
[2021-02-01] MEDS: INSULIN GLARGINE 100 UNITS/ML, PEN SQ-INSULIN SCH ×2 (08:14→20:03)
[2021-02-01] MEDS: INSULIN LISPRO 100 UNITS/ML, PEN SQ-INSULIN SCH ×4 (08:15→20:03)
[2021-02-01] MEDS: SODIUM CHLORIDE FLUSH 10ML SYR IVF SCH ×2 (08:15→20:04)
[2021-02-01] MEDS: ZINC SULFATE 220 MG CAPSULE PO SCH (08:21)
[2021-02-01] MEDS: LISINOPRIL 10 MG TABLET PO SCH ×2 (08:22→20:04)
[2021-02-01] MEDS: OXYcodone/APAP 5/325MG TABLET PO PRN ×3 (08:22→20:11)
[2021-02-01] MEDS: CHOLECALCIFEROL 5,000u TAB PO SCH (08:22)
[2021-02-01] MEDS: MULTIVITS,STRESS FORMULA 1 TABLET PO SCH (08:22)
[2021-02-01] MEDS: DOCUSATE 100 MG CAPSULE PO SCH ×2 (08:22→20:04)
[2021-02-01] MEDS: ENOXAPARIN 40 MG/0.4 ML SQ SCH (10:06)
[2021-02-01 18:31] VITALS: BP 145/78
[2021-02-01 19:21] VITALS: BP 138/66
[2021-02-01] MEDS: MELATONIN 5 MG TABLET PO PRN (20:11)
[2021-02-02 02:47] VITALS: BP 155/79
[2021-02-02] MEDS: GUAIFENESIN 100 MG/5 ML, 10ML UDC PO SCH ×2 (06:00→10:03)
[2021-02-02] MEDS: METOPROLOL SUCCINATE 25 MG TAB.ER.24H PO SCH (06:06)
[2021-02-02] MEDS: PIPERACILLIN/TAZO 3.375 GM in DEXTROSE 5% 50 ML IVPB SCH ×2 (06:07→14:51)
[2021-02-02 08:57] VITALS: BP 147/72
[2021-02-02] MEDS: DOCUSATE 100 MG CAPSULE PO SCH (09:00)
[2021-02-02] MEDS: INSULIN LISPRO 100 UNITS/ML, PEN SQ-INSULIN SCH ×2 (09:58→12:27)
[2021-02-02] MEDS: OXYcodone/APAP 5/325MG TABLET PO PRN ×2 (09:59→14:53)
[2021-02-02] MEDS: INSULIN GLARGINE 100 UNITS/ML, PEN SQ-INSULIN SCH (09:59)
[2021-02-02] MEDS: CHOLECALCIFEROL 5,000u TAB PO SCH (10:01)
[2021-02-02] MEDS: ZINC SULFATE 220 MG CAPSULE PO SCH (10:01)
[2021-02-02] MEDS: ASCORBIC ACID 500 MG TABLET PO SCH (10:01)
[2021-02-02] MEDS: ENOXAPARIN 40 MG/0.4 ML SQ SCH (10:02)
[2021-02-02] MEDS: LISINOPRIL 10 MG TABLET PO SCH (10:02)
[2021-02-02] MEDS: MULTIVITS,STRESS FORMULA 1 TABLET PO SCH (10:02)
[2021-02-02] MEDS: SODIUM CHLORIDE FLUSH 10ML SYR IVF SCH (10:08)
[2021-02-02 12:07] VITALS: BP 161/75
[2021-02-02] MEDS ORDERED: INSU100I11 SQ-INSULIN (15:29)
[2021-02-02] MEDS ORDERED: OXYC1TAB14 PO (15:29)
[2021-02-02] MEDS ORDERED: HYDR-826 PO (15:29)
[2021-02-02] MEDS ORDERED: METO25TA91 PO (15:29)
[2021-02-02] MEDS ORDERED: LISI-167 PO (15:29)
[2021-02-02] MEDS ORDERED: INSU100I13 SQ-INSULIN (15:29)
[2021-02-02 15:38] VITALS: BP 182/130
== END 2021-02-02 16:45 | DRG 853 ==
LOC: ED 11:40 → EDIP 14:09 → SUATTDRO 14:34 → 4EST 20:41
PROVIDERS: ADMIT Family Medicine; ATTEND Family Medicine
PROC: 0K9 Muscles, Drainage (ICD-10-PCS; principal; 2021-01-20 18:30)
PROC: 2W1SX6Z Compression of Right Foot using Pressure Dressing (ICD-10-PCS; 2021-01-22)
PROC: 0Y6H0Z1 Detachment at Right Lower Leg, High, Open Approach (ICD-10-PCS; 2021-01-22)
PROC: 0Y6H0Z1 Detachment at Right Lower Leg, High, Open Approach (ICD-10-PCS; 2021-01-24)
PROC: 5A0935A Assistance with Respiratory Ventilation, Less than 24 Consecutive Hours, High Flow/Velocity Cannula (ICD-10-PCS; 2021-01-31)
PROC: 5A0935A Assistance with Respiratory Ventilation, Less than 24 Consecutive Hours, High Flow/Velocity Cannula (ICD-10-PCS; 2021-02-01)
DX: A40.1 Sepsis due to streptococcus, group B (principal); A48.0 Gas gangrene; L03.115 Cellulitis of right lower limb; L02.611 Cutaneous abscess of right foot; E11.52 Type 2 diabetes mellitus with diabetic peripheral angiopathy with gangrene; E46 Unspecified protein-calorie malnutrition; J81.1 Chronic pulmonary edema; N17.9 Acute kidney failure, unspecified; D63.8 Anemia in other chronic diseases classified elsewhere; E11.65 Type 2 diabetes mellitus with hyperglycemia; E11.69 Type 2 diabetes mellitus with other specified complication; E66.9 Obesity, unspecified; R09.02 Hypoxemia; E83.52 Hypercalcemia; E87.70 Fluid overload, unspecified; R65.20 Severe sepsis without septic shock; F12.90 Cannabis use, unspecified, uncomplicated; I16.0 Hypertensive urgency; Z66 Do not resuscitate; Z20.822 Contact with and (suspected) exposure to COVID-19; Z87.891 Personal history of nicotine dependence; Z68.33 Body mass index [BMI] 33.0-33.9, adult; Z88.5 Allergy status to narcotic agent
CPT/HCPCS: 36415; 36600; 71045; 80053; 80069; 82550; 82803; 82962; 83036; 83605; 83735; 83880; 84145; 85025; 85610; 85651; 86140; 87040; 87070; 87075; 87147; 87181; 87205; 87635; 88307; 93005; 93306; 96374; 96375; G0378; J0878; J1170; J1650; J1885; J1940; J2250; J2405; J2543; J2704; J3010; J3370; J0330; J1815; J2270; J2800; J3420; J7030; J7040; J7120; Q0177